=== PATIENT | male | born 2000 ===

== ENCOUNTER 2022-03-22 23:14 | Emergency (ER) | payer OTHER, MEDICAID ==
[2022-03-22] MEDS ORDERED: HYDROcodone/ACETAMINOPHEN 5-325 MG TAB PO ONE (23:21)
[2022-03-22] MEDS ORDERED: TETANUS,DIPH,PERTUSS(ACELL) VACCINE 0.5 ML SYRINGE IM ONE (23:21)
[2022-03-22] MEDS ORDERED: LIDOCAINE-MPF (1%) 10 MG/1 ML VIAL 5 ML INFILTRATI ONE (23:21)
--- NOTE | 2022-03-22 23:43 | XRay Report ---
Left hand 3 views INDICATION: Nail FINDINGS: There is a nail which traverses the distal phalanx of the index finger. This appears to ext end through the region of the DIP joint involves both the middle and distal phalanx on lateral view. Signer Name: Noah Rudd MD Signed: 03/22/2022 11:38 PM Workstation Name: [id number]
--- NOTE | 2022-03-23 00:36 | Emergency Department Report ---
Upper Extremity - HPI Chief Complaint: Extremity Injury, Upper Stated Complaint: NAIL RIGHT INDEX FINGER Upper Extremity: Left Index Finger (Impaled nail from nail gun) Mechanism: Other Severity: moderate (Nail gun) Symptoms: Yes Pain with Movement, Yes Limited Range of Movement, Yes Swelling, Yes Laceration or Abrasion (Puncture wound from a nail gun), No Deformity, No Numbness, No Weakness, No Bruising/Ecchymosis Other History: Patient is a 29-year-old right-handed martinez who presents for nail impaled the left index finger. States he accidentally shot a nail through his left index finger distal. There is no gross deformity. Patient does endorse pain of 7/10. Pain is exacerbated by palpation and movement last tetanus unknown. There is no active bleeding at this time. There is no nail damage. ED Review of Systems ROS: Stated complaint: NAIL RIGHT INDEX FINGER Other details as noted in HPI Constitutional: denies: chills, fever Eyes: denies: eye pain, eye discharge, vision change ENT: denies: ear pain, throat pain Respiratory: denies: cough, shortness of breath, wheezing Cardiovascular: denies: chest pain, palpitations Endocrine: no symptoms reported Gastrointestinal: denies: abdominal pain, nausea, diarrhea Genitourinary: denies: urgency, dysuria Musculoskeletal: other (Left index finger pain swelling and pale nail) Skin: denies: rash, lesions Neurological: denies: headache, weakness, paresthesias Psychiatric: denies: anxiety, depression Hematological/Lymphatic: denies: easy bleeding, easy bruising ED Past Medical Hx - Medications Home Medications: Home Medications Medication Instructions Recorded Confirmed Last Taken Type cephALEXin [Keflex] 500 mg PO Q8HR 7 Days #21 cap 03/23/22 Unknown Rx traMADoL [Ultram] 50 mg PO Q6HR PRN #12 tablet 03/23/22 Unknown Rx Upper Extremity Exam - Exam General: Vital signs noted. No distress. Alert and acting appropriately. Head and Torso: No HEENT Abnormality, No Neck Tenderness, No Chest/Lungs Abnormality, No Abdominal Tenderness, No Back Tenderness Shoulder Exam: Yes Normal Range of Motion in Shoulder, No Shoulder Tenderness, No Clavicle Tenderness, No Shoulder Deformity, No AC Joint Tenderness Arm Exam: No Arm/Humerus Tenderness, No Arm Deformity Elbow: No Elbow Tenderness, No Normal Range of Motion in Elbow, No Elbow Deformity Forearm: No Forearm Tenderness, No Forearm Deformity, No Pain with Pronation, No Pain with Supination Wrist: Yes Normal ROM in Wrist, No Wrist Tenderness, No Wrist Deformity, No Snuffbox Tenderness, No Pain with Axial Thumb Compression Hand: Yes Digit Tenderness (Left index finger impaled nail distal no nail damage), No Hand Tenderness, No Hand Deformity, No Digit(s) Deformity, No Tendon Dysfunction CMS Exam: Yes Broken Skin, Yes Normal Distal Pulses, Yes Normal Capillary Refill, Yes Normal Distal Sensation ED Course Vital Signs 03/23/22 00:00 Temperature 98.8 F Pulse Rate 63 Respiratory 17 Rate Blood Pressure 144/85 [Right] O2 Sat by Pulse 98 Oximetry - Procedure Description Procedures done: Distal index finger impaled nail site cleaned with Betadine solution. Anesthesia with 1% lidocaine 2 cc for digital block digital block is achieved. Nail removed with six-inch blunt forceps and direct traction. The nail was removed intact. Bleeding was controlled sterile dressing applied. Patient given tetanus, antibiotics, pain control, patient will follow-up with hand in 2 to 3 days. X-ray demonstrates no fracture. Range of motion remains intact. There is no nerve muscle or tendon damage. M48 M60 [employer] less than 3 seconds. Flexion extension against direct opposition intact. Patient given wound care instructions including wash with soap and water, antibiotic therapy, follow-up with hand surgery. He verbalized agreement understanding of same.. ED Medical Decision Making - Radiology Data Radiology results: report reviewed, image reviewed Left hand 3 views INDICATION: Nail FINDINGS: There is a nail which traverses the distal phalanx of the index finger. This appears to extend through the region of the DIP joint involves both the middle and distal phalanx on lateral view. Signer Name: Naoh Barragan MD Signed: 03/22/2022 11:38 PM Workstation Name: [id number] Transcribed By: STEPHANIE Dictated By: JOHANNA BARRAGAN MD Electronically Authenticated By: JOHANNA BARRAGAN MD Signed Date/Time: 03/22/222337 DD/ 37 TD/TT: - Medical Decision Making Foreign body nail removed from left index finger see procedure note above. All bleeding controlled, sterile dressings intact, patient given follow-up instructions including antibiotic therapy, discharge instruction follow-up with hand surgery. He verbalized agreement understanding of same patient DC'd home in stable condition at this time. Critical care attestation.: If time is entered above; I have spent that time in minutes in the direct care of this critically ill patient, excluding procedure time. ED Disposition Clinical Impression: Foreign body of left index finger Injury of finger by nail gun Qualifiers: Encounter type: initial encounter Laterality: left Qualified Code(s): S69.92XA - Unspecified injury of left wrist, hand and finger(s), initial encounter; W29.4XXA - Contact with nail gun, initial encounter Disposition: HOME / SELF CARE / HOMELESS Is pt being admited?: No Does the pt Need Aspirin: No Condition: Stable Instructions: Hand or Foot Foreign Body, Adult Additional Instructions: Take medications as prescribed, wound care as directed. Follow-up with hand surgery in 2 to 3 days. Return to emergency department should symptoms worsen. Prescriptions: cephALEXin [Keflex] 500 mg PO Q8HR 7 Days #21 cap traMADoL [Ultram] 50 mg PO Q6HR PRN #12 tablet PRN Reason: Pain Referrals: TAPAN ORLANDO MD [Staff Physician] - 3-5 Days Forms: Work/School Release Form(ED) Time of Disposition: 00:44
[2022-03-23 01:23] VITALS: BP 127/82
== END 2022-03-23 01:43 | disposition home or self-care (01) ==
LOC: ED 23:14
DX: S61.321A Laceration with foreign body of left index finger with damage to nail, initial encounter (principal); S69.92XA Unspecified injury of left wrist, hand and finger(s), initial encounter; W29.4XXA Contact with nail gun, initial encounter; Y93.89 Activity, other specified; Y92.89 Other specified places as the place of occurrence of the external cause; Y99.8 Other external cause status
CPT/HCPCS: 64450; 73130; 90471; 90715; 99283; J3490